=== PATIENT | female | born 1940 | race Caucasian/White ===

== ENCOUNTER 2022-03-20 11:27 | Inpatient (IN) | payer MEDICARE, OTHER ==
[2022-03-20 13:22] LABS: Mean Corpuscular Hemoglobin 24.9 pg (27.0-33.0); Mean Corpuscular Volume 82.9 fl (81.6-98.3); Mean Platelet Volume 11.1 fl (7.4-10.4); Platelet Count 142 10x3/uL (150-450); RBC Distribution Width 19.6 % (11.5-14.5); Red Blood Cell (RBC) Count 2.81 10x6/uL (3.90-5.03); White Blood Cell (WBC) Count 3.7 10x3/uL (3.5-10.5)
[2022-03-20 13:29] LABS: ALT (SGPT) 17 U/L (8-55); AST (SGOT) 27 U/L (5-34); Albumin 3.8 g/dL (3.4-4.8); Alkaline Phosphatase 94 U/L (40-110); Anion Gap 15 mmol/L (10-20); BUN (Urea Nitrogen) 19 mg/dL (9.8-20.1); Bilirubin, Total 0.6 mg/dL (0.2-1.2); Calc. Creatinine Clearance 0 mL/min (70-130); Calcium 9.3 mg/dL (7.8-10.44); Carbon Dioxide 37 mmol/L (23-31); Chloride 96 mmol/L (98-107); Globulin 2.3 g/dL (2.4-3.5); Glucose 121 mg/dL (83-110); Magnesium 1.7 mg/dL (1.6-2.6); Protein, Total 6.1 g/dL (5.8-8.1); Sodium 145 mmol/L (136-145)
[2022-03-20 13:33] LABS: Potassium 2.7 mmol/L (3.5-5.1)
[2022-03-20 13:35] LABS: MDiff Complete? YES
[2022-03-20 13:40] LABS: Band 4 % (5-11); Lymphocytes 15 % (21-51); Monocytes 7 % (0-10); Neutrophil 74 % (42-75)
[2022-03-20 13:46] LABS: CKMB 1.5 ng/mL (0-6.6)
[2022-03-20 13:47] LABS: Hypochromia SLIGHT = 6-15 cells (100X) (0-5/hpf); Ovalocytes SLIGHT = 2-5 cells (100X) (0-1/hpf)
[2022-03-20 13:49] LABS: Platelet Morphology Comment Appears Decreased
[2022-03-20 13:50] LABS: Anisocytosis SLIGHT = 6-15 cells (100X) (0-5/hpf)
[2022-03-20] MEDS ORDERED: Potassium Chloride 20 MEQ TAB ONE (13:51)
[2022-03-20 16:57] LABS: Troponin I 0.046 ng/mL (< 0.028)
[2022-03-20] MEDS ORDERED: Magnesium 2 GM/50 ML(in water) 2 GM in Premix Bag 1 BAG IVPB SCH ×2 (17:00→22:00)
[2022-03-20 17:37] LABS: Iron 26 ug/dL (50-170); Iron Binding Capacity, Total 480 mcg/dL (265-497)
[2022-03-20] MEDS ORDERED: Furosemide 40 MG/4 ML VIAL IVP SCH (18:45)
[2022-03-20] MEDS: Potassium Chloride 20 MEQ in Premix Bag 1 BAG IVPB SCH ×3 (19:56→22:49)
[2022-03-20] MEDS: traZODone HCl 50 MG TAB PO SCH (20:38)
[2022-03-20] MEDS: Rosuvastatin 10 MG TAB PO SCH (20:38)
[2022-03-20] MEDS ORDERED: ACALABRUTINIB 100 MG PO SCH (21:00)
[2022-03-20 22:41] LABS: Hemoglobin 7.6 g/dL (12.0-15.5)
[2022-03-20] MEDS: Acetaminophen 325 MG TAB PO PRN (22:47)
[2022-03-20] MEDS ORDERED: Magnesium 2 GM/50 ML BAG (IN WATER) ONE (22:49)
[2022-03-20 23:12] LABS: Ferritin 13.06 ng/mL (10-291)
[2022-03-21] MEDS: Potassium Chloride 20 MEQ in Premix Bag 1 BAG IVPB SCH ×4 (00:15→21:41)
[2022-03-21 00:57] LABS: SARS-CoV-2 PCR by NAA Not Detected (NotDetected)
[2022-03-21] MEDS: Levothyroxine Sodium 50 MCG TAB PO SCH (05:10)
[2022-03-21 05:11] LABS: #Eosinphils 0.1 10x3/uL (0.0-0.5); #Monocytes 0.3 10x3/uL (0.0-1.1); #Neutrophils 2.5 10x3/uL (1.5-8.4); %Basophils 1.1 % (0.0-2.0); %Eosinophils 3.4 % (0.0-6.0); %Lymphocytes 16.7 % (18.0-47.0); %Monocytes 9.1 % (0.0-10.0); %Neutrophils 69.4 % (40.0-75.0); Hemoglobin 8.3 g/dL (12.0-15.5); Mean Corpuscular HGB CONC 32.3 g/dL (32.0-36.0); Mean Corpuscular Hemoglobin 26.5 pg (27.0-33.0); Mean Corpuscular Volume 82.1 fl (81.6-98.3); Mean Platelet Volume 10.8 fl (7.4-10.4); Platelet Count 120 10x3/uL (150-450); RBC Distribution Width 18.8 % (11.5-14.5); Red Blood Cell (RBC) Count 3.13 10x6/uL (3.90-5.03); White Blood Cell (WBC) Count 3.5 10x3/uL (3.5-10.5)
[2022-03-21 05:15] LABS: Anion Gap 13 mmol/L (10-20); BUN (Urea Nitrogen) 16 mg/dL (9.8-20.1); Calc. Creatinine Clearance 48 mL/min (70-130); Calcium 8.7 mg/dL (7.8-10.44); Carbon Dioxide 35 mmol/L (23-31); Chloride 99 mmol/L (98-107); Glucose 94 mg/dL (83-110); Magnesium 2.4 mg/dL (1.6-2.6); Potassium 3.4 mmol/L (3.5-5.1); Sodium 144 mmol/L (136-145)
[2022-03-21] MEDS ORDERED: cefTRIAXone\\ROCEPHIN 1 GM in Sodium Chloride 0.9% 100 ML IVPB SCH (08:30)
[2022-03-21] MEDS: Aspirin 81 mg Enteric Coated Tablet PO SCH (10:34)
[2022-03-21] MEDS: Fludrocortisone Acetate 0.1 MG TAB PO SCH (10:34)
[2022-03-21] MEDS: Clopidogrel Bisulfate 75 MG TAB PO SCH (10:34)
[2022-03-21] MEDS: Escitalopram Oxalate 20 mg Tablet PO SCH (10:34)
[2022-03-21] MEDS ORDERED: Ondansetron HCl/PF 4 MG/2 ML Vial IVP PRN (15:44)
[2022-03-21] MEDS ORDERED: Promethazine HCl 25 MG/ML VIAL IVPB PRN (15:44)
[2022-03-21] MEDS ORDERED: Promethazine HCl 25 MG/ML VIAL IM PRN (15:44)
[2022-03-21] MEDS ORDERED: PROPOFOL 20 ML ONE (16:50)
[2022-03-21] MEDS ORDERED: Fentanyl 100 MCG/2 ML VIAL ONE (16:50)
[2022-03-21] MEDS: Rosuvastatin 10 MG TAB PO SCH (20:55)
[2022-03-21] MEDS: Melatonin 3 MG TAB PO PRN (20:56)
[2022-03-21] MEDS: traZODone HCl 50 MG TAB PO SCH (20:57)
[2022-03-22] MEDS ORDERED: Iron, Sodium Ferric Gluconate 250 MG in Sodium Chloride 0.9% 250 ML 250 ML IVPB SCH (00:30)
[2022-03-22] MEDS: Levothyroxine Sodium 50 MCG TAB PO SCH (05:09)
[2022-03-22 05:18] LABS: Anion Gap 14 mmol/L (10-20); BUN (Urea Nitrogen) 14 mg/dL (9.8-20.1); Calc. Creatinine Clearance 52 mL/min (70-130); Calcium 8.6 mg/dL (7.8-10.44); Carbon Dioxide 30 mmol/L (23-31); Chloride 100 mmol/L (98-107); Glucose 109 mg/dL (83-110); Potassium 3.6 mmol/L (3.5-5.1); Sodium 140 mmol/L (136-145)
[2022-03-22 05:39] LABS: #Monocytes 0.5 10x3/uL (0.0-1.1); #Neutrophils 6.4 10x3/uL (1.5-8.4); %Basophils 0.3 % (0.0-2.0); %Lymphocytes 4.8 % (18.0-47.0); %Monocytes 7.1 % (0.0-10.0); %Neutrophils 87.1 % (40.0-75.0); Hemoglobin 8.1 g/dL (12.0-15.5); Mean Corpuscular HGB CONC 31.9 g/dL (32.0-36.0); Mean Corpuscular Hemoglobin 26.2 pg (27.0-33.0); Mean Corpuscular Volume 82.2 fl (81.6-98.3); Mean Platelet Volume 11.9 fl (7.4-10.4); Platelet Count 113 10x3/uL (150-450); Red Blood Cell (RBC) Count 3.09 10x6/uL (3.90-5.03); White Blood Cell (WBC) Count 7.3 10x3/uL (3.5-10.5)
[2022-03-22 05:40] LABS: Platelet Morphology Comment Appears Decreased; RBC Morphology Normal
[2022-03-22] MEDS ORDERED: Digoxin 0.125 MG TAB PO SCH ×2 (09:00→10:00)
[2022-03-22] MEDS: Clopidogrel Bisulfate 75 MG TAB PO SCH (09:10)
[2022-03-22] MEDS: Aspirin 81 mg Enteric Coated Tablet PO SCH (09:10)
[2022-03-22] MEDS: Fludrocortisone Acetate 0.1 MG TAB PO SCH (09:10)
[2022-03-22] MEDS: Escitalopram Oxalate 20 mg Tablet PO SCH (09:10)
[2022-03-22] MEDS ORDERED: PROPOFOL 20 ML ONE (12:32)
[2022-03-22] MEDS ORDERED: Ketamine 50 MG/ML (10ML VIAL) ONE (12:33)
[2022-03-22] MEDS: Acetaminophen 325 MG TAB PO PRN (20:00)
[2022-03-22] MEDS: Melatonin 3 MG TAB PO PRN (20:21)
[2022-03-22] MEDS: traZODone HCl 50 MG TAB PO SCH (20:22)
[2022-03-22] MEDS: Rosuvastatin 10 MG TAB PO SCH (20:22)
[2022-03-23 04:06] VITALS: BMI 19.2
[2022-03-23] MEDS: Levothyroxine Sodium 50 MCG TAB PO SCH (05:15)
[2022-03-23 05:19] LABS: #Eosinphils 0.1 10x3/uL (0.0-0.5); #Monocytes 0.5 10x3/uL (0.0-1.1); #Neutrophils 4.2 10x3/uL (1.5-8.4); %Basophils 0.2 % (0.0-2.0); %Eosinophils 1.6 % (0.0-6.0); %Lymphocytes 5.7 % (18.0-47.0); %Monocytes 9.4 % (0.0-10.0); %Neutrophils 82.5 % (40.0-75.0); Hemoglobin 7.9 g/dL (12.0-15.5); Mean Corpuscular HGB CONC 31.2 g/dL (32.0-36.0); Mean Corpuscular Hemoglobin 26.2 pg (27.0-33.0); Mean Corpuscular Volume 83.8 fl (81.6-98.3); Mean Platelet Volume 11.5 fl (7.4-10.4); Platelet Count 107 10x3/uL (150-450); RBC Distribution Width 19.3 % (11.5-14.5); Red Blood Cell (RBC) Count 3.02 10x6/uL (3.90-5.03); White Blood Cell (WBC) Count 5.1 10x3/uL (3.5-10.5)
[2022-03-23 05:30] LABS: Anion Gap 13 mmol/L (10-20); BUN (Urea Nitrogen) 18 mg/dL (9.8-20.1); Calc. Creatinine Clearance 49 mL/min (70-130); Calcium 8.5 mg/dL (7.8-10.44); Carbon Dioxide 30 mmol/L (23-31); Chloride 102 mmol/L (98-107); Glucose 96 mg/dL (83-110); Potassium 3.6 mmol/L (3.5-5.1); Sodium 141 mmol/L (136-145)
[2022-03-23] MEDS ORDERED: Furosemide 40 MG/4 ML VIAL SLOW IVP SCH (08:15)
[2022-03-23] MEDS ORDERED: Digoxin 0.125 MG TAB PO SCH (09:00)
[2022-03-23] MEDS ORDERED: Potassium Chloride 20 MEQ TAB PO SCH (09:00)
[2022-03-23] MEDS: Fludrocortisone Acetate 0.1 MG TAB PO SCH (10:23)
[2022-03-23] MEDS: Aspirin 81 mg Enteric Coated Tablet PO SCH (10:25)
[2022-03-23] MEDS: Clopidogrel Bisulfate 75 MG TAB PO SCH (10:26)
[2022-03-23] MEDS: Escitalopram Oxalate 20 mg Tablet PO SCH (10:35)
[2022-03-23 17:24] VITALS: BP 150/67; TEMP 97.1
[2022-03-24] MEDS ORDERED: Furosemide 20 MG TAB PO PRN (09:00)
== END 2022-03-23 19:00 | disposition home or self-care (01) | DRG 811 ==
LOC: CSHERS 11:27 → CSHTELE 15:54 → OBSVTOIN 03-22 18:24
PROVIDERS: ADMIT Student in an Organized Health Care Education/Training Program; ATTEND Internal Medicine
PROC: 30233N1 Transfusion of Nonautologous Red Blood Cells into Peripheral Vein, Percutaneous Approach (ICD-10-PCS; 2022-03-20)
PROC: 0DB98ZX Excision of Duodenum, Via Natural or Artificial Opening Endoscopic, Diagnostic (ICD-10-PCS; principal; 2022-03-21)
PROC: 0DB48ZX Excision of Esophagogastric Junction, Via Natural or Artificial Opening Endoscopic, Diagnostic (ICD-10-PCS; 2022-03-21)
PROC: 0W3P8ZZ Control Bleeding in Gastrointestinal Tract, Via Natural or Artificial Opening Endoscopic (ICD-10-PCS; 2022-03-21)
DX: D50.9 Iron deficiency anemia, unspecified (principal); J18.9 Pneumonia, unspecified organism; I50.43 Acute on chronic combined systolic (congestive) and diastolic (congestive) heart failure; J96.01 Acute respiratory failure with hypoxia; I48.21 Permanent atrial fibrillation; I13.0 Hypertensive heart and chronic kidney disease with heart failure and stage 1 through stage 4 chronic kidney disease, or unspecified chronic kidney disease; N18.30 Chronic kidney disease, stage 3 unspecified; I95.1 Orthostatic hypotension; D63.1 Anemia in chronic kidney disease; K29.60 Other gastritis without bleeding; K29.80 Duodenitis without bleeding; E87.6 Hypokalemia; I25.10 Atherosclerotic heart disease of native coronary artery without angina pectoris; E78.5 Hyperlipidemia, unspecified; Z20.822 Contact with and (suspected) exposure to COVID-19; Z88.8 Allergy status to other drugs, medicaments and biological substances; Z95.5 Presence of coronary angioplasty implant and graft; Z88.5 Allergy status to narcotic agent; Z98.890 Other specified postprocedural states; Z90.710 Acquired absence of both cervix and uterus; Z95.818 Presence of other cardiac implants and grafts; Z85.72 Personal history of non-Hodgkin lymphomas; Z79.82 Long term (current) use of aspirin; Z79.899 Other long term (current) drug therapy; Z79.01 Long term (current) use of anticoagulants; Z79.890 Hormone replacement therapy
CPT/HCPCS: 36415; 36430; 71045; 80048; 80053; 82274; 82553; 82607; 82728; 82746; 83540; 83550; 83735; 83880; 84484; 85025; 85046; 86850; 86900; 86901; 93005; 93312; 94760; J1940; J1956; J2704; J2916; J3010; J3475; J3480; J7050; P9016; U0003; U0005

== ENCOUNTER 2023-02-02 17:51 | Emergency (ER) | payer MEDICARE, OTHER ==
[2023-02-02] MEDS ORDERED: EPINEPHrine 1 MG/10 ML Abboject SYRINGE ONE (18:15)
[2023-02-02] MEDS ORDERED: Calcium Chloride 1 GM/10 ML Abboject SYRINGE ONE (18:15)
== END 2023-02-02 18:02 | disposition expired ==
LOC: CSHERS 17:51
DX: I46.9 Cardiac arrest, cause unspecified (principal); E11.9 Type 2 diabetes mellitus without complications; I25.10 Atherosclerotic heart disease of native coronary artery without angina pectoris
CPT/HCPCS: 92950; 94760; J0171